=== PATIENT | male | born 1985 | race Caucasian/White ===

== ENCOUNTER 2023-02-23 09:38 | Emergency (ER) | payer SELFPAY ==
--- NOTE | ~2023-02-23 | CT_ITS ---
EXAMINATION: CT ABDOMEN AND PELVIS WITH CONTRAST CLINICAL INFORMATION: Right lower quadrant pain nausea vomiting evaluate for appendicitis renal stone COMPARISON: None available. TECHNIQUE: Multidetector volumetric images were obtained from the superior aspect of the liver through the pubic symphysis following administration 85 mL of Omnipaque 350 intravenous contrast. Sagittal and coronal reformatted images were obtained on the technologist's workstation. Oral contrast: No This CT examination was performed using dose optimization techniques as appropriate, variously including the following: *Automated exposure control *Adjustment of mA and/or kV according to patient size (this includes techniques or standardized protocols for targeted exams where dose is matched to indication/reason for exam; i.e. extremities or head) *Use of iterative reconstruction technique DLP: 792 mGy-cm FINDINGS: LUNG BASES: Bibasilar atelectasis. No pneumothorax. No large pleural effusion. LIVER, GALLBLADDER, AND BILIARY TREE: The liver is normal in size, shape, and attenuation. No focal hepatic lesion or biliary ductal dilatation is present. The gallbladder is unremarkable with no evidence of radiopaque gallstones, gallbladder wall thickening, or obvious pericholecystic inflammatory changes. PANCREAS: Unremarkable. SPLEEN: Unremarkable. ADRENAL GLANDS: Unremarkable. KIDNEYS AND URETERS: Slight limitations for evaluation of nephrolithiasis given intravenous contrast within the collecting system. The kidneys are normal in size, shape, and attenuation. No hydronephrosis, hydroureter, or calculi seen. No perinephric stranding. BLADDER: Unremarkable. GASTROINTESTINAL TRACT: Small hiatal hernia. Colonic diverticulosis without acute diverticulitis. The small and large bowel are unremarkable. The appendix is unremarkable. ABDOMINAL WALL: Small fat filled umbilical hernia. LYMPH NODES: Normal. VASCULAR: Unremarkable. PELVIC VISCERA: Prostate measures 4.1 cm. OSSEOUS STRUCTURES: Unremarkable. CT/CT abdomen pelvis w IV con IMPRESSION: 1. No acute process of the abdomen or pelvis identified. 2. Slight limitations for evaluation of nephrolithiasis given intravenous contrast within the collecting system. No hydronephrosis, hydroureter, or calculi seen. 3. Small hiatal hernia. 4. Colonic diverticulosis without acute diverticulitis.
[2023-02-23 09:50] VITALS: BP 160/98; PULSE 68; O2SAT 99; BMI 33.5
[2023-02-23 09:53] VITALS: BP 158/84; PULSE 62; RESP 16; TEMP 36.5; O2SAT 100
--- NOTE | 2023-02-23 10:02 | ED.ABDPAIN ---
HPI - Abdominal Pain General Chief Complaint: Nausea/Vomiting/Diarrhea Stated Complaint: R FLANK PAIN,VOMITING X1 DAY PER EMS Time Seen by Provider: 02/23/23 09:59 Source: patient, family (), EMS and RN notes reviewed Mode of arrival: EMS Limitations: no limitations History of Present Illness HPI narrative: 37-year-old male with pmhx significant for DVT of left upper extremity presenting to the ED today via EMS with a complaint of excruciating right lower quadrant pain that radiates to his right flank which woke him from his sleep 8 hours ago. Pain has been constant since onset. Radiates to his right flank. Rates pain 10/10. Has had pain like this intermittently over the last month. Associated symptoms include nausea and vomiting. Denies previous abdominal surgeries. Denies ilicit drug use. Denies ETOH consumptions. Not on AC. Last BM yesterday. Denies fever, chills, MELENDREZ, dizziness, neck pain, back pain, chest pain, SOB, diarrhea, constipation, dysuria, hematuria. Related Data Previous Rx's Medication Instructions Recorded morphine 15 mg immediate release 15 mg PO Q8H PRN pain (scale score 02/23/23 tablet 7-10) 3 days #12 tabs omeprazole 20 mg capsule,delayed 20 mg PO DAILY #14 caps 02/23/23 release ondansetron 4 mg disintegrating 4 mg PO DAILY PRN nausea and 02/23/23 tablet vomiting 5 days #10 tabs tamsulosin 0.4 mg capsule 0.4 mg PO DAILY 30 days #30 caps 02/23/23 Allergies Allergy/AdvReac Type Severity Reaction Status Date / Time No Known Allergies Allergy Verified 02/23/23 09:50 Review of Systems Review of Systems Constitutional: No fever, chills, fatigue, night sweats, weight changes ENT/Mouth: No ear pain, hearing loss, nasal congestion, sinus pain, rhinorrhea, sore throat Eyes: No eye pain, swelling, redness, vision changes, discharge Cardio: No chest pain, palpitations, BUCK, orthopnea, peripheral edema Pulm: No SOB, cough, sputum, wheezing, dyspnea, hemoptysis GI: +nausea, +vomiting, No hematemesis, +abdominal pain, No diarrhea, constipation, hematochezia, melena : No irregular bleeding, dysuria, frequency, urgency, hesitancy, hematuria, flank pain, urinary flow changes, urinary incontinence or retention MSK: No back pain, neck pain, joint pain, myalgias Skin: No lesions, rashes Neuro: No weakness, numbness, paresthesias, LOC, dizziness, headache All other systems reviewed and are negative. [facility] Past Medical History Attestation statement: The following information was validated with the patient. Source: old records reviewed and nursing notes reviewed Social History Social History Alcohol intake: never Smoked in Last 30 Days: No Use of substances other than those prescribed or required for medical reasons: No Advance Directives: No Physical Exam ED Vital Signs: Vital Signs - 24 hr 02/23/23 09:53 02/23/23 11:47 02/23/23 14:00 Temperature 97.7 F 98.0 F Pulse Rate 62 77 87 Respiratory Rate 16 18 16 Blood Pressure 158/84 H 164/105 H 130/96 H Pulse Oximetry 100 100 97 Oxygen Delivery Method Room Air Room Air Room Air BMI result Body Mass Index 33.5 Vital signs notable for hypertension Const Other: + Patient writhing in pain on bed guarding his stomach General: alert, awake and ill appearing; No diaphoretic Nutritional Appearance: average body habitus Orientation/consciousness: patient oriented x3 Limitations: no limitations HENMT Head: Yes normal to inspection Ears: hearing grossly normal bilaterally General nose exam: Normal external nose present Eyes General: appearance normal, both eyes and all related structures Conjunctivae: conjunctivae normal Sclerae: sclerae normal Pupils: Equal, round and reactive pupils present Neck Neck: Yes normal visual inspection, Yes no lymphadenopathy and Yes no meningeal signs Resp Effort & Inspection: normal respiratory effort Auscultation: clear to auscultation bilaterally Cardio Rate: regular rate Rhythm: regular rhythm Peripheral pulses: radial pulses present, posterior tibial pulses present and dorsalis pedis present GI Other: + Abdomen soft, non-distended, diffusely tender to palpation, worse to RLQ, guarding, no rebound tenderness. Normoactive BS x4. Inspection: Yes normal to inspection and No abdominal wall ecchymosis General: Yes no CVA tenderness Back/Spine/Pelvis Back: no CVA tenderness Skin General skin exam: no rashes or lesions noted Neuro General: patient oriented x3, gait normal, moves all extremities and no meningeal signs Cranial nerves: Yes CN's II-XII intact bilaterally and Yes Equal, round and reactive pupils present Extrem General: Yes normal to inspection and Yes capillary refill normal Course Course Course Narrative: 1156-- Patient still complaining of excruciating abdominal pain. Another 4 of morphine ordered. I also checked with CT and patient is up next for scan. > On review of labs, CBC is without leukocytosis or anemia. Chemistry is without acute electrolyte abnormality requiring intervention. Normal renal function. Lipase is WNL. Urine is negative for infection. Toxicology is positive for amphetamines, otherwise undetectable. 1307-- Physician observation initiated pending CT read. 1406-- CT unremarkable. There is a small umbilical hernia and hiatal hernia however this does not correlate with patient's presentation and is unlikely to be the cause of his pain. Unable to identify any renal stone d/t contrast. No hydronephrosis. > on re-evaluation patient reports symptom improvement with IV morphine. He is up and talking to me, no longer rolling around on the bed. His is at bedside. Informed patient of his unremarkable lab and CT results. Patient's symptoms are likely consistent with non-obstructing kidney stone/renal colic. Patient tolerating PO in ED. Will send patient home with Zofran, morphine for pain, and Flomax. Patient also reports concern for possible stress ulcer. This is unlikely however will send patient home with trial of omeprazole. Patient expresses understanding of workup and plan. Discussed return precautions. All questions answered at this time. Patient agreeable with disposition and stable for d/c. Medical Decision Making Medical Decision Making [facility] Narrative: 37-year-old male with pmhx significant for DVT of left upper extremity presenting to the ED today via EMS with a complaint of excruciating right lower quadrant pain that radiates to his right flank which woke him from his sleep 8 hours ago. Vital signs notable for hypertension, likely secondary to pain. Patient writhing in pain on bed guarding his stomach. Abdomen soft, non-distended, diffusely tender to palpation, worse to RLQ, guarding, no rebound tenderness. Normoactive BS x4. No CVAT b/l. Clinical concern for renal stone/ renal colic, appendicitis/ perforation, pancreatitis, cholecystitis/lithiasis. Lower suspicion for UTI, pyelonephritis, hydronephrosis. Unlikely SBO, ischemic bowel, hepatitis. Plan at this time is labs, UA, u tox, imaging, pain control. Differential Diagnosis Differential Diagnoses: The differential diagnosis associated with the presentation includes As above. Admission/Observation Not indicated. Lab Data MDM Lab Attestation statement: I reviewed the patient's lab results. As above. 02/23/23 10:46 02/23/23 10:46 Labs: Lab Results 02/23/23 Range/Units 10:46 WBC 10.6 (4.8-10.8) X10*3/uL RBC 5.08 (4.60-5.80) X10*6/uL Hgb 14.6 (14.0-18.0) g/dl Hct 43.2 (42.0-52.0) % MCV 85.0 (80.0-98.0) fL MCH 28.7 (27.0-33.0) pg MCHC 33.8 (31.0-36.0) g/dl RDW 12.4 (11.0-16.0) % Plt Count 324 (160-400) X10*3/uL MPV 11.2 (9.4-12.4) fL Immature Gran % (Auto) 0.4 (0.0-0.4) % Neut % (Auto) 77.4 H (45-73) % Lymph % (Auto) 17.0 L (20-40) % [place] % (Auto) 4.4 (2-11) % Eos % (Auto) 0.3 (0-4) % Baso % (Auto) 0.5 (0-2) % Lymph # (Auto) 1.8 (1.2-4.9) X10*3/uL [place] # (Auto) 0.5 (0.1-1.2) X10*3/uL Eos # (Auto) 0.0 (0.0-0.4) X10*3/uL Baso # (Auto) 0.1 (0.0-0.2) X10*3/uL Abs Immat Gran (auto) 0.04 H (0.00-0.03) X10*3/uL Absolute Neuts (auto) 8.2 (2.0-8.3) x10*3/uL Absolute Nucleated RBC 0.000 (0.0-0.012) X10*3/uL Nucleated RBC % (auto) 0.0 (0.0-0.2) /100WBC ESR 7 (0-15) MM/HR PT 10.9 L (11.1-13.3) SEC INR 0.9 (0.9-1.1) Sodium 140 (135-145) mmol/L Potassium 3.8 (3.3-5.1) mmol/L Chloride 106 (96-108) mmol/L Carbon Dioxide 26 (22-29) mmol/L Anion Gap 12 (12-20) BUN 13 (9-16) mg/dL Creatinine 0.82 (0.5-1.4) mg/dL Estim Creat Clear Calc 148.5 Estimated GFR > 60 Random Glucose 105 (60-115) mg/dL Calcium 10.1 (8.4-10.2) mg/dL Magnesium 2.0 (1.6-2.6) mg/dL Total Bilirubin 0.7 (0.0-1.0) mg/dL AST 25 (5-37) U/L ALT 96 H (0-40) U/L Alkaline Phosphatase 103 (39-117) U/L C-Reactive Protein < 0.10 (< or = 0.50) mg/dL Total Protein 7.7 (6.5-8.0) g/dL Albumin 4.5 (3.5-5.0) g/dL Lipase 31 (8-78) U/L Urine Color Yellow Urine Appearance Clear Urine pH 8.5 (5.0-9.0) Ur Specific [place] 1.020 (1.005-1.025) Urine Protein Negative (Neg-Trace) mg/dL Urine Glucose (UA) Negative (Negative) mg/dL Urine Ketones Negative (Negative) mg/dL Urine Blood Negative (Negative) Urine Nitrite Negative (Negative) Ur Leukocyte Esterase Negative (Negative) Urine Opiates Screen Not Detected (Not Detect) Urine Fentanyl Screen Not Detected (Not Detect) Ur Barbiturates Screen Not Detected (Not Detect) Ur Phencyclidine Scrn Not Detected (Not Detect) Ur Amphetamines Screen POSITIVE H (Not Detect) U Benzodiazepines Scrn Not Detected (Not Detect) Urine Cocaine Screen Not Detected (Not Detect) U Marijuana (THC) Screen Not Detected (Not Detect) Ethyl Alcohol < 10 mg/dL Independent Interpretation I performed an independent interpretation of an: CT Scan Interpretation: CT abd/ pelvis without evidence of appendicitis, agree with radiologist's interpretation Radiology Impression Discussion of test interpretation with radiology: I have reviewed the radiologist's reading. Radiologist Impression: CT abdomen pelvis w IV con IMPRESSION: 1. No acute process of the abdomen or pelvis identified. 2. Slight limitations for evaluation of nephrolithiasis given intravenous contrast within the collecting system. No hydronephrosis, hydroureter, or calculi seen. 3. Small hiatal hernia. 4. Colonic diverticulosis without acute diverticulitis. Independent Historian Clinical information obtained from an independent historian. History obtained from or confirmed by: Spouse and EMS External Record Review External record reviewed: Inpatient record, Office record and Outpatient record Prescription Management I considered prescription management with: Pain Medication Chronic Conditions Patient?s care impacted by: Other (DVT) Medications Administered Discontinued Medications Generic Name Dose Route Start Last Admin Trade Name Freq PRN Reason Stop Dose Admin Sodium Chloride 1,000 mls @ 999 mls/hr 02/23/23 10:30 02/23/23 11:47 Ns IV 02/23/23 11:30 Infused .Q1H1M MICHAEL Infusion Iohexol 85 ml 02/23/23 12:26 02/23/23 12:26 Iohexol 350 Mg/Ml 100 Ml Infus..Btl IV 02/23/23 12:27 85 ml ONCE ONE Administration Morphine Sulfate 4 mg 02/23/23 10:19 02/23/23 10:52 Morphine Sulfate 4 Mg/Ml Cartridge IVPUSH 02/23/23 10:20 4 mg ONCE ONE Administration Protocol Morphine Sulfate 4 mg 02/23/23 11:52 02/23/23 11:57 Morphine Sulfate 4 Mg/Ml Cartridge IVPUSH 02/23/23 11:53 4 mg ONCE ONE Administration Protocol Morphine Sulfate 2 mg 02/23/23 14:04 02/23/23 14:11 Morphine Sulfate 2 Mg/Ml Cartridge IVPUSH 02/23/23 14:05 2 mg ONCE ONE Administration Protocol Critical Care Time Critical Care Time Critical Care Time: Yes Total Critical Care Time: 60 Attestation: Critical care time in the amount of 60 minutes has been provided to the patient in terms of direct patient care, frequent reevaluation on IV morphine, review and interpretation of medical data and results, and management of potentially life-threatening conditions. This is all outside of any medical procedures. Discharge Plan Discharge Clinical Impression: Renal calculi Patient Disposition: Home, Self-Care Instructions: Kidney Stones (ED), Renal Colic (ED) Additional Instructions: Your labs today are reassuring. The CT scan of your abdomen/pelvis did not demonstrate any acute process. It did show a small umbilical hernia which likely is not the cause of your pain. Your symptoms are consistent with renal stones. Flomax has been sent to your pharmacy. Take this as prescribed to help urinate if stones. Zofran has been sent to your pharmacy. This is anti nausea medication. Take this as needed for nausea. Morphine is a pain medication. Take this as needed for pain. You tolerated dose of this in the emergency department today. Omeprazole is a medication that can help with gastric ulcers. Take this as prescribed to help with discomfort. Please follow-up with your primary care physician. If you do not have one, a referral has been provided to you. You may call them to make an appointment. They will not call you. You have also been provided with a referral to a GI specialist for concern of gastric ulcer. If your symptoms persist or worsen, please return to the emergency department. In the case of an emergency call 911. Prescriptions: New tamsulosin 0.4 mg capsule 0.4 mg PO DAILY 30 Days Qty: 30 0RF morphine 15 mg tablet 15 mg PO Q8H PRN (Reason: pain (scale score 7-10)) 3 Days Qty: 12 0RF Rx Instructions: Partial Fill upon patient request. ondansetron 4 mg tablet,disintegrating 4 mg PO DAILY PRN (Reason: nausea and vomiting) 5 Days Qty: 10 0RF omeprazole 20 mg capsule,delayed release(DR/EC) 20 mg PO DAILY Qty: 14 0RF Referrals: [facility] [place] [facility] [Provider Group] - 5 days [facility] [Provider Group] [facility] [place] [facility] [Provider Group] Vladimir Albarran MD [Primary Care Provider] - Stand Alone Forms: Work/School Release Interventions: ED Discharge Assessment Last Done: 02/23/23 14:36 Discharge Date/Time: 02/23/23 14:36
[2023-02-23] MEDS: 0.9 % Sodium Chloride 1,000 ML 999 ML IV (10:46)
[2023-02-23 10:51] LABS: MANUAL DIFF FLAG NO
[2023-02-23 10:52] LABS: Basophils Absolute Auto 0.1 X10*3/uL (0.0-0.2); Basophils Percent Auto 0.5 % (0-2); Eosinophils Percent Auto 0.3 % (0-4); Hematocrit 43.2 % (42.0-52.0); Hemoglobin 14.6 g/dl (14.0-18.0); Imm Gran Abs Auto 0.04 X10*3/uL (0.00-0.03); Imm Gran Pct Auto 0.4 % (0.0-0.4); Lymphocytes Absolute Auto 1.8 X10*3/uL (1.2-4.9); Mean Corpuscular HGB Conc 33.8 g/dl (31.0-36.0); Mean Corpuscular Hemoglobin 28.7 pg (27.0-33.0); Mean Platelet Volume 11.2 fL (9.4-12.4); Monocytes Absolute Auto 0.5 X10*3/uL (0.1-1.2); Monocytes Percent Auto 4.4 % (2-11); Neutrophils Absolute Auto 8.2 x10*3/uL (2.0-8.3); Neutrophils Percent Auto 77.4 % (45-73); Platelet Count 324 X10*3/uL (160-400); Red Blood Count 5.08 X10*6/uL (4.60-5.80); Red Cell Distribution Width 12.4 % (11.0-16.0); White Blood Count 10.6 X10*3/uL (4.8-10.8)
[2023-02-23] MEDS: Morphine Sulfate 4 MG/ML CARTRIDGE IVPUSH ×2 (10:52→11:57)
[2023-02-23 10:53] LABS: Appearance Urine Clear; Color Urine Yellow; Glucose Urine UA Negative (Negative); Leukocyte Esterase Urine Negative (Negative); Nitrite Urine Negative (Negative); PH 8.5 (5.0-9.0); Urine Blood Negative (Negative); Urine Ketones Negative (Negative); Urine Protein Negative (Neg-Trace)
--- NOTE | 2023-02-23 10:53 | PC.NURSE ---
2ogIV placed in left AC w/o complications - labs drawn and sent to lab. medication administered per provider order. pt awaiting CT scan at this time/aware of plan of care. respirations remain even and unlabored. pt tearful/agitated d/t pain. will reassess pain level shortly. family bedside for support. call breaux placed within reach.
[2023-02-23 10:57] LABS: INTERNATIONAL NORM RATIO 0.9 (0.9-1.1); Prothrombin Time 10.9 SEC (11.1-13.3)
[2023-02-23 11:04] LABS: Amphetamine Screen Urine POSITIVE (Not Detect); Barbiturates, Urine Not Detected (Not Detect); Benzodiazepines Screen Urine Not Detected (Not Detect); Cannabinoid Screen Urine Not Detected (Not Detect); Cocaine Screen Urine Not Detected (Not Detect); Fentanyl, urine Not Detected (Not Detect); Opiate Screen Urine Not Detected (Not Detect); Phencyclidine Screen Urine Not Detected (Not Detect)
[2023-02-23 11:13] LABS: Alanine Aminotransferase 96 U/L (0-40); Albumin Level 4.5 g/dL (3.5-5.0); Alkaline Phosphatase 103 U/L (39-117); Anion Gap 12 (12-20); Aspartate Amino Transferase 25 U/L (5-37); Bilirubin Total 0.7 mg/dL (0.0-1.0); Blood Urea Nitrogen 13 mg/dL (9-16); C Reactive Protein < 0.10 mg/dL (< or = 0.50); Calcium 10.1 mg/dL (8.4-10.2); Carbon Dioxide 26 mmol/L (22-29); Chloride 106 mmol/L (96-108); Creatinine Clr Calc Pharmacy 148.5; Estimated Glomerular Filt Rate > 60; Glucose Random 105 mg/dL (60-115); Lipase 31 U/L (8-78); Potassium 3.8 mmol/L (3.3-5.1); Sodium 140 mmol/L (135-145); Total Protein 7.7 g/dL (6.5-8.0)
[2023-02-23 11:21] LABS: Ethanol < 10 mg/dL
[2023-02-23 11:29] LABS: Erythrocyte Sedimentation Rate 7 MM/HR (0-15)
[2023-02-23 11:47] VITALS: BP 164/105; PULSE 77; RESP 18; TEMP 36.7; O2SAT 100
--- NOTE | 2023-02-23 11:48 | PC.NURSE ---
vss aside from being hypertensive at this time. pt c/o 05/04 abd/flank pain despite medication. will notify provider. pt currently remains tearful/agitated d/t pain. family bedside. call breaux within reach.
--- NOTE | 2023-02-23 12:01 | PC.NURSE ---
provider aware of pt's BP and pain level at this time. medication administered per provider order. will reassess pain level shortly. pt still awaiting CT. family bedside. call breaux within reach.
--- NOTE | 2023-02-23 12:04 | PC.NURSE ---
pt currently being transported to CT at this time.
--- NOTE | 2023-02-23 12:14 | PC.NURSE ---
pt back from CT at this time.
[2023-02-23] MEDS: iohexoL 350 MG/ML 100 ML INFUS..BTL 85 ML IV (12:26)
--- NOTE | 2023-02-23 13:58 | PC.NURSE ---
pt speaking w/ provider and pt's about plan of action at this time.
[2023-02-23 14:00] VITALS: BP 130/96; PULSE 87; RESP 16; O2SAT 97
[2023-02-23] MEDS: Morphine Sulfate 2 MG/ML CARTRIDGE IVPUSH (14:11)
--- NOTE | 2023-02-23 14:12 | PC.NURSE ---
medication administered per provider order. will reassess shortly. family bedside. call breaux within reach.
== END 2023-02-23 14:36 | disposition home or self-care (01) ==
PROVIDERS: Physician Assistant Medical; Emergency Provider Emergency Medicine Emergency Medical Services; PCP Internal Medicine
DX: N20.0 Calculus of kidney (principal); R10.31 Right lower quadrant pain; R11.2 Nausea with vomiting, unspecified; K42.9 Umbilical hernia without obstruction or gangrene; K44.9 Diaphragmatic hernia without obstruction or gangrene; K57.30 Diverticulosis of large intestine without perforation or abscess without bleeding; Z86.718 Personal history of other venous thrombosis and embolism
CPT/HCPCS: 36415; 74177; 80053; 80307; 81003; 83690; 83735; 85025; 85610; 85652; 86140; 96361; 96374; 96376; 99284; 99285; J2270; Q9967

== ENCOUNTER 2023-07-23 13:59 | Emergency (ER) | payer MEDICAID, SELFPAY ==
--- NOTE | ~2023-07-23 | CT_ITS ---
EXAMINATION: CT ANGIOGRAM OF THE CHEST WITH AND WITHOUT CONTRAST (CT PULMONARY ANGIOGRAM FOR PE) CLINICAL INFORMATION: Pleuritic chest pain. Rule out pulmonary embolism. COMPARISON: None available. TECHNIQUE: Prior to contrast administration, noncontrast localization images were obtained. Subsequently, multidetector volumetric imaging was performed from the thoracic inlet to below the diaphragms following the administration of 65 mL Omnipaque 350 intravenous contrast. No contrast reaction reported Sagittal, coronal, and MIP oblique sagittal reformatted images were obtained on the CT workstation, uploaded to PACS, and reviewed. This CT examination was performed using dose optimization techniques as appropriate, variously including the following: *Automated exposure control *Adjustment of mA and/or kV according to patient size (this includes techniques or standardized protocols for targeted exams where dose is matched to indication/reason for exam; i.e. extremities or head) *Use of iterative reconstruction technique Total exam dose-length product 401 mGy-cm FINDINGS: QUALITY OF STUDY/CONTRAST BOLUS: Satisfactory. PULMONARY ARTERIES: No pulmonary emboli. THORACIC AORTA: No aneurysm. LUNG: No focal consolidation, significant nodules or masses. A 0.4 cm somewhat plaque-like nodules/thickening is noted along the right major fissure, is nonspecific and likely representing a small fissural lymph node (series 8 image 193). PLEURA: No pleural effusion or pneumothorax. MEDIASTINUM: Normal heart size. No pericardial effusion. No hilar or mediastinal lymphadenopathy. No evidence of septal bowing or right heart strain. A triangular soft tissue is noted in the anterior superior mediastinum, measuring 3.2 cm in transverse dimension, may represent residual thymic tissue versus thymic hyperplasia. Thymic soft tissue lesion would be difficult to exclude entirely. CORONARY ARTERY CALCIFICATION: None visualized on this study. CHEST WALL/AXILLA: No axillary or internal mammary lymphadenopathy. Moderate to extensive bilateral gynecomastia. OSSEOUS STRUCTURES: No acute or suspicious osseous abnormality. Minimal multilevel degenerative changes in the thoracic spine. UPPER ABDOMEN: Unremarkable. Mild reflux of contrast into inferior vena cava is noted which is nonspecific; finding can be seen in the setting of elevated right heart pressures/right heart strain. Recommend clinical correlation. CT/CT angio chest PE protocol IMPRESSION: 1. No evidence of pulmonary embolism. 2. No acute pulmonary process. 3. A 3.2 cm triangular soft tissue in the anterior superior mediastinum may represent residual thymic tissue versus thymic hyperplasia. Thymic soft tissue lesion would be difficult to exclude entirely. As clinically deemed necessary chest MRI (with and without contrast) will be helpful for further evaluation. 4. Moderate to extensive bilateral gynecomastia. VTE: negative.
--- NOTE | ~2023-07-23 | CT_ITS ---
EXAMINATION: CT ABDOMEN AND PELVIS WITHOUT CONTRAST CLINICAL INFORMATION: R flank pain. COMPARISON: 02/23/2023. TECHNIQUE: Multidetector volumetric imaging was performed from the superior aspect of the liver through the pubic symphysis without contrast per renal stone protocol. Sagittal and coronal reformatted images were obtained on the technologist workstation. This CT examination was performed using dose optimization techniques as appropriate, variously including the following: *Automated exposure control *Adjustment of mA and/or kV according to patient size (this includes techniques or standardized protocols for targeted exams where dose is matched to indication/reason for exam; i.e. extremities or head) *Use of iterative reconstruction technique DLP: 904 mGy-cm. FINDINGS: LUNG BASES: The visualized lung bases are unremarkable. LIVER, GALLBLADDER, BILIARY TREE: The non-contrast liver is normal in size, shape, and attenuation. No focal hepatic lesion or biliary ductal dilatation is present. The gallbladder is unremarkable with no evidence of radiopaque gallstones, gallbladder wall thickening, or obvious pericholecystic inflammatory changes. PANCREAS: Unremarkable. SPLEEN: Unremarkable. ADRENAL GLANDS: Unremarkable. KIDNEYS AND URETERS: The kidneys are normal in size, shape, and attenuation. No hydronephrosis, hydroureter, or perinephric stranding. No calculi. BLADDER: Unremarkable. GASTROINTESTINAL TRACT: There is scattered colonic diverticulosis in the sigmoid colon. Colon is otherwise decompressed with no obvious colonic wall thickening or pericolonic inflammatory change appreciated appendix is unremarkable with no periappendiceal inflammatory change. Visualized small bowel unremarkable ABDOMINAL WALL: No significant hernia is appreciated. LYMPHOVASCULAR STRUCTURES: No lymphadenopathy. The aorta is unremarkable.. PELVIC VISCERA: Unremarkable. OSSEUS STRUCTURES: Unremarkable. CT/CT abdomen pelvis wo IV con IMPRESSION: No acute intra-abdominal process seen. No renal or ureteric calculi. No obstructive changes to the kidneys.
[2023-07-23 14:06] VITALS: BP 164/74; BP 189/103; PULSE 72; PULSE 76; RESP 17; TEMP 35.9; O2SAT 100; O2SAT 94; BMI 34.0
--- NOTE | 2023-07-23 14:15 | ED_ITS ---
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 The patient states he woke up with the pain at 06:00 hours. He points to his right upper flank and right anterior and posterior lower chest localize the pain. He describes the pain as a ?pulled muscle pain is if something is hacking him up from the inside ?. States the pain is worse with breathing and with coughing. He states he has had a cough on and off for 6 months pain in the past here in the emergency department on 02/23/2023. Patient's workup was negative at that time and he was diagnosed with renal colic treated with Flomax, morphine, ondansetron omeprazole. Patient states he has had similar pain several times in the past besides the time that he was seen in the emergency department. Patient states that he had the flu 1 week ago. He states that he has had intermittent fever and chills since then. He has had a nonproductive cough intermittently for the last 6 months. Currently complains of shortness of breath and dyspnea on exertion. He had nausea with no vomiting. He denied diarrhea. He states that he has pain when he initially tries to urinate but then the pain is resolved once he urinates. He denied frequency or dysuria. Related Data Previous Rx's Medication Instructions Recorded morphine 15 mg immediate release 15 mg PO Q8H PRN pain (scale score 02/23/23 tablet 7-10) 3 days #12 tabs omeprazole 20 mg capsule,delayed 20 mg PO DAILY #14 caps 02/23/23 release ondansetron 4 mg disintegrating 4 mg PO DAILY PRN nausea and 02/23/23 tablet vomiting 5 days #10 tabs tamsulosin 0.4 mg capsule 0.4 mg PO DAILY 30 days #30 caps 02/23/23 morphine 15 mg immediate release 15 mg PO Q6H PRN pain #10 tabs 07/23/23 tablet tamsulosin 0.4 mg capsule (Flomax) 0.4 mg PO DAILY #30 caps 07/23/23 Allergies Allergy/AdvReac Type Severity Reaction Status Date / Time No Known Allergies Allergy Verified 02/23/23 09:50 Review of Systems 2 Review of Systems: Yes all other systems are reviewed and are negative [facility] Past Medical History [facility] Narrative: Past medical history: Left upper extremity DVT, hypertension not treated with medications. Social history: He denies tobacco, alcohol and drug use. Social History Social History Alcohol intake: never Smoked in Last 30 Days: No Use of substances other than those prescribed or required for medical reasons: No Advance Directives: No Advance Directives Information Provided: No Physical Exam ED Vital Signs: Vital Signs - 24 hr 07/23/23 14:06 07/23/23 15:45 07/23/23 18:26 Temperature 96.7 F L Pulse Rate 76 63 79 Respiratory Rate 17 16 20 Blood Pressure 189/103 H 149/97 H 147/103 H Pulse Oximetry 100 100 99 Oxygen Delivery Method Room Air Room Air Room Air BMI result Body Mass Index 34.0 Vital signs revealed an elevated blood pressure of 189/103. Exam: General: Awake, alert , patient appears to be in distress secondary to his pain Head: Normocephalic, atraumatic EENT: PERRL, Lids normal, sclera normal, conjunctiva normal, nose normal , ears normal, throat without erythema or exudates Neck: Supple, no adenopathy Lung: breath sounds symmetric, no wheezing, rales or rhonchi Chest: symmetric movement, nontender Heart: regular rate and rhythm, normal S1, S2 no murmurs or rubs Abdomen: soft, non-tender, nondistended, normal bowel sounds Back: no vertebral tenderness, no CVAT Extremities: no deformities, moves all extremities symmetrically the Skin: No rashes or lesions seen in the area where he is complaining of pain Neuro: Awake, alert, oriented, normal speech, cranial nerves intact, moves all extremities symmetrically Psych: Pleasant, cooperative Course Course Course Narrative: This is an RME: Additional HPI, ROS, PE not included below will be deferred to primary provider. 38 year old male hx significant for DVT of left upper extremity not on thinners, htn presenting to the ED w/ severe RLQ pain w/ radiation to R flank and a/c nausea. Thinks he had a kidney stone before but unclear. Pain > 10/10 per patient. No fevers or chills, cp, sob, diarrhea, sick contacts. Isnt followed by pcp regularly PE looks uncomfortable Plan- labs, ua, ct scan Medications Administered Discontinued Medications Generic Name Dose Route Start Last Admin Trade Name Alda PRN Reason Stop Dose Admin Sodium Chloride 1,000 mls @ 999 mls/hr 07/23/23 16:02 07/23/23 17:45 Ns IV 07/23/23 17:02 Infused .Q1H1M STA Infusion Iohexol 100 ml 07/23/23 16:29 07/23/23 16:30 Iohexol 350 Mg/Ml 100 Ml Infus..Btl IV 07/23/23 16:30 65 ml ONCE ONE Administration Ketorolac Tromethamine 15 mg 07/23/23 16:02 07/23/23 16:14 Ketorolac Tromethamine 15 Mg/Ml Vial IVPUSH 07/23/23 16:03 15 mg ONCE STA Administration Morphine Sulfate 4 mg 07/23/23 17:08 07/23/23 17:19 Morphine Sulfate 4 Mg/Ml Cartridge IVPUSH 07/23/23 17:09 4 mg ONCE STA Administration Protocol Ondansetron HCl 4 mg 07/23/23 16:02 07/23/23 16:14 Ondansetron Hcl 4 Mg/2 Ml Vial IVPUSH 07/23/23 16:03 4 mg ONCE ONE Administration Medical Decision Making Medical Decision Making [facility] Narrative: 38-year-old male with history of left arm DVT secondary to anabolic steroid use who presents emergency department for evaluation constant, severe right-sided pleuritic chest pain/flank pain. Pain is worse with coughing and with breathing, he has had similar pain in the past and had a negative workup here in the emergency department 02/23/2023 and was diagnosed with renal colic. Patient has had a intermittent cough on and on for 6 months, he had flu-like illness 1 week prior. Vital signs did reveal an elevated blood pressure-she does have hypertension but is not taking medications. Physical examination revealed no with palpation of his chest wall, back muscles or abdominal area. There were no skin lesions to suggest herpes zoster at this time. Differential diagnosis: ?Includes but is not limited to biliary colic, renal colic, ureteral stone, pneumonia, pulmonary embolism, appendicitis, pancreatitis, cardiac ischemia, myocardial infarction, herpes zoster Following evaluation was ordered: CBC, CMP, lipase, magnesium, troponin, CT scan of the abdomen pelvis with IV contrast, CT angiogram chest PE protocol, EKG Patient was initially treated with the following: Toradol 15 mg IV, Zofran 4 mg IV, normal saline x1 L, insert, cardiac monitoring, O2 saturation monitoring Course: 16:15 My independent interpretation patient's laboratory evaluation as follows: CBC was normal. Elevated ALT of 47. Urinalysis negative. Lipase pending. PT/INR, PTT, D-dimer pending CT scan of the abdomen pelvis with IV contrast did not reveal a clear etiology for his abdominal/chest pain. 18:54 CT pulmonary angiogram PE protocol did not reveal any significant finding to explain the patient's pleuritic pain however the patient does have an incidental finding, 3.2 cm triangle soft tissue mass in the anterior superior mediastinum which may be residual thymic tissue verses thymic hyperplasia. I did discuss this finding with the patient the patient's . 12 EKG was unremarkable Patient only got minimal improvement with IV Toradol and required a dose of morphine 4 mg IV with reduction of his pain to 4/10 Patient will be discharged with prescription for Flomax this may have helped him last time as well as a prescription for morphine He was given printed and verbal instructions and discharged home Admission/Observation Consideration of admission/observation: Escalation of care including admission/observation considered Lab Data MDM Lab Attestation statement: I reviewed the patient's lab results. 07/23/23 14:36 07/23/23 14:36 Labs: Lab Results 07/23/23 07/23/23 Range/Units 14:36 16:34 WBC 9.9 (4.8-10.8) X10*3/uL RBC 5.34 (4.60-5.80) X10*6/uL Hgb 15.5 (14.0-18.0) g/dl Hct 45.1 (42.0-52.0) % MCV 84.5 (80.0-98.0) fL MCH 29.0 (27.0-33.0) pg MCHC 34.4 (31.0-36.0) g/dl RDW 12.7 (11.0-16.0) % Plt Count 300 (160-400) X10*3/uL MPV 11.0 (9.4-12.4) fL Immature Gran % (Auto) 0.3 (0.0-0.4) % Neut % (Auto) 76.3 H (45-73) % Lymph % (Auto) 16.5 L (20-40) % [place] % (Auto) 5.7 (2-11) % Eos % (Auto) 0.6 (0-4) % Baso % (Auto) 0.6 (0-2) % Lymph # (Auto) 1.6 (1.2-4.9) X10*3/uL [place] # (Auto) 0.6 (0.1-1.2) X10*3/uL Eos # (Auto) 0.1 (0.0-0.4) X10*3/uL Baso # (Auto) 0.1 (0.0-0.2) X10*3/uL Abs Immat Gran (auto) 0.03 (0.00-0.03) X10*3/uL Absolute Neuts (auto) 7.5 (2.0-8.3) x10*3/uL Absolute Nucleated RBC 0.000 (0.0-0.012) X10*3/uL Nucleated RBC % (auto) 0.0 (0.0-0.2) /100WBC PT 11.0 L (11.1-13.3) SEC INR 0.9 (0.9-1.1) D-Dimer High Sensitivty 190 NG/ML Sodium 140 (135-145) mmol/L Potassium 3.7 (3.3-5.1) mmol/L Chloride 104 (96-108) mmol/L Carbon Dioxide 25 (22-29) mmol/L Anion Gap 15 (12-20) BUN 13 (9-16) mg/dL Creatinine 0.95 (0.5-1.4) mg/dL Estim Creat Clear Calc 127.9 Estimated GFR > 60 Random Glucose 98 (60-115) mg/dL Calcium 10.1 (8.4-10.2) mg/dL Magnesium 2.1 (1.6-2.6) mg/dL Total Bilirubin 0.7 (0.0-1.0) mg/dL AST 22 (5-37) U/L ALT 47 H (0-40) U/L Alkaline Phosphatase 110 (39-117) U/L Total Protein 8.0 (6.5-8.0) g/dL Albumin 4.7 (3.5-5.0) g/dL Lipase 106 H (8-78) U/L Urine Color Yellow Urine Appearance Cloudy Urine pH >= 9.0 (5.0-9.0) Ur Specific [place] 1.015 (1.005-1.025) Urine Protein Negative (Neg-Trace) mg/dL Urine Glucose (UA) Negative (Negative) mg/dL Urine Ketones Negative (Negative) mg/dL Urine Blood Negative (Negative) Urine Nitrite Negative (Negative) Ur Leukocyte Esterase Negative (Negative) Independent Interpretation I performed an independent interpretation of an: EKG Interpretation: My independent interpretation patient's 12 EKG done at 16:53 hours is as follows: QRS of 104 milliseconds, depression, no PACs, no PVCs, no significant Radiology Impression Discussion of test interpretation with radiology: I have reviewed the radiologist's reading. Radiologist Impression: CT abdomen pelvis wo IV con IMPRESSION: No acute intra-abdominal process seen. No renal or ureteric calculi. No obstructive changes to the kidneys. Dictated By: Cornell Michaels MD CT angio chest PE protocol IMPRESSION: 1. No evidence of pulmonary embolism. 2. No acute pulmonary process. 3. A 3.2 cm triangular soft tissue in the anterior superior mediastinum may represent residual thymic tissue versus thymic hyperplasia. Thymic soft tissue lesion would be difficult to exclude entirely. As clinically deemed necessary chest MRI (with and without contrast) will be helpful for further evaluation. 4. Moderate to extensive bilateral gynecomastia. VTE: negative. Dictated By: Julio Cesar Mendiola MD Independent Historian Clinical information obtained from an independent historian. History obtained from or confirmed by: Spouse Prescription Management I considered prescription management with: Pain Medication Discharge Plan Discharge Clinical Impression: Chest pain, pleuritic, Right flank pain Patient Disposition: Home, Self-Care Additional Instructions: Your blood work was unremarkable Urinalysis was also normal The CT scan of your abdomen pelvis without contrast did not reveal a clear cause for your abdominal pain The CT pulmonary angiogram pulmonary embolism protocol did not reveal any blood clots in your lungs or any other abnormality to explain your pain. At this time I do not have a cl2 pills every 6 hours as needed for pain. Take Tylenol (acetaminophen) 2 pills every 6 hours as needed for pain. For pain not relieved by ibuprofen or Tylenol take morphine 15 mg pills, 1 pill every 4 hours as needed for pain. This medication will make you sleepy, do not drive or work while taking this medication. Morphine is a narcotic medication and can be addicting. If you are concerned about addiction you can ask the pharmacist for less pills or do not get this prescription filled. Follow-up with your doctor in 2 days. Please return to the emergency department if your symptoms get worse or if you develop any symptoms that are concerning to you. There was an incidental finding on your CT scan of your chest, please see the reading below. The radiologist did note a 3.2 cm soft tissue mass in the mediastinum which may be residual thymic gland or hyperplastic thymic gland. The radiologist recommendation that you get an MRI with and without contrast as an outpatient. It is important that you get this test ordered by your outpatient physician to further evaluate this finding. CT angio chest PE protocol IMPRESSION: 1. No evidence of pulmonary embolism. 2. No acute pulmonary process. 3. A 3.2 cm triangular soft tissue in the anterior superior mediastinum may represent residual thymic tissue versus thymic hyperplasia. Thymic soft tissue lesion would be difficult to exclude entirely. As clinically deemed necessary chest MRI (with and without contrast) will be helpful for further evaluation. 4. Moderate to extensive bilateral gynecomastia. VTE: negative. Dictated By: Julio Cesar Mendiola MD Prescriptions: New tamsulosin [Flomax] 0.4 mg capsule 0.4 mg PO DAILY Qty: 30 0RF morphine 15 mg tablet 15 mg PO Q6H PRN (Reason: pain) Qty: 10 0RF Rx Instructions: The patient may ask for partial fill; Partial Fill upon patient request. No Action tamsulosin 0.4 mg capsule 0.4 mg PO DAILY 30 Days Qty: 30 0RF morphine 15 mg tablet 15 mg PO Q8H PRN (Reason: pain (scale score 7-10)) 3 Days Qty: 12 0RF Rx Instructions: Partial Fill upon patient request. ondansetron 4 mg tablet,disintegrating 4 mg PO DAILY PRN (Reason: nausea and vomiting) 5 Days Qty: 10 0RF omeprazole 20 mg capsule,delayed release(DR/EC) 20 mg PO DAILY Qty: 14 0RF
[2023-07-23 14:40] LABS: MANUAL DIFF FLAG NO
[2023-07-23 14:44] LABS: Appearance Urine Cloudy; Color Urine Yellow; Glucose Urine UA Negative (Negative); Leukocyte Esterase Urine Negative (Negative); Nitrite Urine Negative (Negative); PH >= 9.0 (5.0-9.0); Specific Gravity - Urine 1.015 (1.005-1.025); Urine Blood Negative (Negative); Urine Ketones Negative (Negative); Urine Protein Negative (Neg-Trace)
[2023-07-23 14:47] LABS: Basophils Absolute Auto 0.1 X10*3/uL (0.0-0.2); Basophils Percent Auto 0.6 % (0-2); Eosinophils Absolute Auto 0.1 X10*3/uL (0.0-0.4); Eosinophils Percent Auto 0.6 % (0-4); Hematocrit 45.1 % (42.0-52.0); Hemoglobin 15.5 g/dl (14.0-18.0); Imm Gran Abs Auto 0.03 X10*3/uL (0.00-0.03); Imm Gran Pct Auto 0.3 % (0.0-0.4); Lymphocytes Absolute Auto 1.6 X10*3/uL (1.2-4.9); Lymphocytes Percent Auto 16.5 % (20-40); Mean Corpuscular HGB Conc 34.4 g/dl (31.0-36.0); Mean Corpuscular Volume 84.5 fL (80.0-98.0); Monocytes Absolute Auto 0.6 X10*3/uL (0.1-1.2); Monocytes Percent Auto 5.7 % (2-11); Neutrophils Absolute Auto 7.5 x10*3/uL (2.0-8.3); Neutrophils Percent Auto 76.3 % (45-73); Platelet Count 300 X10*3/uL (160-400); Red Blood Count 5.34 X10*6/uL (4.60-5.80); Red Cell Distribution Width 12.7 % (11.0-16.0); White Blood Count 9.9 X10*3/uL (4.8-10.8)
[2023-07-23 14:58] LABS: Alanine Aminotransferase 47 U/L (0-40); Albumin Level 4.7 g/dL (3.5-5.0); Alkaline Phosphatase 110 U/L (39-117); Anion Gap 15 (12-20); Aspartate Amino Transferase 22 U/L (5-37); Bilirubin Total 0.7 mg/dL (0.0-1.0); Blood Urea Nitrogen 13 mg/dL (9-16); Calcium 10.1 mg/dL (8.4-10.2); Carbon Dioxide 25 mmol/L (22-29); Chloride 104 mmol/L (96-108); Creatinine Clr Calc Pharmacy 127.9; Estimated Glomerular Filt Rate > 60; Glucose Random 98 mg/dL (60-115); Magnesium 2.1 mg/dL (1.6-2.6); Potassium 3.7 mmol/L (3.3-5.1); Sodium 140 mmol/L (135-145)
[2023-07-23 15:45] VITALS: BP 149/97; PULSE 63; RESP 16; O2SAT 100
--- NOTE | 2023-07-23 16:02 | ECG_ITS ---
Test Reason : CHEST PAIN Blood Pressure : / mmHG Vent. Rate : 066 BPM Atrial Rate : 066 BPM P-R Int : 160 ms QRS Dur : 104 ms QT Int : 434 ms P-R-T Axes : 000 157 190 degrees QTc Int : 454 ms Limb leads reversal Normal sinus rhythm Left posterior fascicular block Nonspecific T wave abnormality Abnormal ECG No previous ECGs available Referred By: Damon Edward Electronically Signed By:Krunal Honeycutt
[2023-07-23] MEDS: 0.9 % Sodium Chloride 1,000 ML 999 ML IV (16:14)
[2023-07-23] MEDS: Ketorolac Tromethamine 15 MG/ML VIAL IVPUSH (16:14)
[2023-07-23] MEDS: ondansetron HCL 4 MG/2 ML VIAL IVPUSH (16:14)
[2023-07-23] MEDS: iohexoL 350 MG/ML 100 ML INFUS..BTL IV (16:30)
[2023-07-23] MEDS: Morphine Sulfate 4 MG/ML CARTRIDGE IVPUSH (17:19)
[2023-07-23 17:26] LABS: INTERNATIONAL NORM RATIO 0.9 (0.9-1.1)
[2023-07-23 17:28] LABS: D Dimer High Sensitivity 190 NG/ML
[2023-07-23 18:26] VITALS: BP 147/103; PULSE 79; RESP 20; O2SAT 99
[2023-07-23 18:52] LABS: Lipase 106 U/L (8-78)
[2023-07-23 19:33] VITALS: BP 151/93; PULSE 76; RESP 14; TEMP 36.7; O2SAT 98
== END 2023-07-23 19:34 | disposition home or self-care (01) ==
PROVIDERS: Physician Assistant; Emergency Provider Emergency Medicine Emergency Medical Services
DX: R10.9 Unspecified abdominal pain (principal); R07.1 Chest pain on breathing; I10 Essential (primary) hypertension; Z86.718 Personal history of other venous thrombosis and embolism
CPT/HCPCS: 36415; 71275; 74176; 80053; 81003; 83690; 83735; 85025; 85379; 85610; 93005; 96361; 96374; 96375; 99284; 99285; J1885; J2270; J2405; Q9967

== ENCOUNTER → 2023-07-23 16:02 | Outpatient (BNV) | payer MEDICAID, SELFPAY | PROVIDERS: Emergency Provider Emergency Medicine Emergency Medical Services; Visit Provider Internal Medicine Cardiovascular Disease | DX: R94.31 Abnormal electrocardiogram [ECG] [EKG] (principal) | CPT/HCPCS: 93010 ==

== ENCOUNTER 2023-07-29 14:01 | Outpatient (REF) | payer MEDICAID, SELFPAY ==
[2023-07-29 17:35] LABS: MANUAL DIFF FLAG NO
[2023-07-29 17:41] LABS: Basophils Absolute Auto 0.1 X10*3/uL (0.0-0.2); Basophils Percent Auto 0.9 % (0-2); Eosinophils Absolute Auto 0.1 X10*3/uL (0.0-0.4); Hematocrit 47.4 % (42.0-52.0); Hemoglobin 15.7 g/dl (14.0-18.0); Imm Gran Abs Auto 0.01 X10*3/uL (0.00-0.03); Imm Gran Pct Auto 0.2 % (0.0-0.4); Lymphocytes Absolute Auto 1.5 X10*3/uL (1.2-4.9); Lymphocytes Percent Auto 27.1 % (20-40); Mean Corpuscular HGB Conc 33.1 g/dl (31.0-36.0); Mean Corpuscular Hemoglobin 28.9 pg (27.0-33.0); Mean Corpuscular Volume 87.3 fL (80.0-98.0); Mean Platelet Volume 11.5 fL (9.4-12.4); Monocytes Absolute Auto 0.5 X10*3/uL (0.1-1.2); Monocytes Percent Auto 9.4 % (2-11); Neutrophils Absolute Auto 3.3 x10*3/uL (2.0-8.3); Neutrophils Percent Auto 60.4 % (45-73); Platelet Count 306 X10*3/uL (160-400); Red Blood Count 5.43 X10*6/uL (4.60-5.80); Red Cell Distribution Width 13.5 % (11.0-16.0); White Blood Count 5.5 X10*3/uL (4.8-10.8)
[2023-07-29 17:53] LABS: Alanine Aminotransferase 108 U/L (0-40); Albumin Level 4.5 g/dL (3.5-5.0); Alkaline Phosphatase 123 U/L (39-117); Aspartate Amino Transferase 21 U/L (5-37); Bilirubin Total 0.6 mg/dL (0.0-1.0); Blood Urea Nitrogen 16 mg/dL (9-16); C Reactive Protein 0.12 mg/dL (< or = 0.50); Calcium 10.4 mg/dL (8.4-10.2); Carbon Dioxide 30 mmol/L (22-29); Chloride 105 mmol/L (96-108); Estimated Glomerular Filt Rate > 60; Gamma Glutamyl Transpeptidase 160 U/L (11-51); Glucose Random 78 mg/dL (60-115); Iron 75 mcg/dL (45-160); Lipase 18 U/L (8-78); Percent Iron Saturation 25 % (15-50); Potassium 4.4 mmol/L (3.3-5.1); Sodium 141 mmol/L (135-145); Total Iron Binding Capacity 305 mcg/dL (228-428); Total Protein 8.2 g/dL (6.5-8.0); Unsaturated Iron Binding 230 ug/dL
[2023-07-29 18:02] LABS: Amylase 54 U/L (28-100)
[2023-07-29 18:12] LABS: Appearance Urine Clear; Color Urine Dark Yellow; Glucose Urine UA Negative (Negative); Leukocyte Esterase Urine Trace (Negative); Nitrite Urine Negative (Negative); Specific Gravity - Urine 1.025 (1.005-1.025); UMIC TRIGGER UA YES; Urine Blood Negative (Negative); Urine Ketones Trace mg/dL (Negative); Urine Protein Negative (Neg-Trace)
[2023-07-29 18:18] LABS: Ferritin 347 ng/mL (20-250); Free T4 (Free Thyroxine) 0.95 ng/dL (0.71-1.85); Thyroid Stimulating Hormone 1.09 uIU/mL (0.32-4.0)
[2023-07-29 18:36] LABS: Erythrocyte Sedimentation Rate 16 MM/HR (0-15)
[2023-07-29 18:48] LABS: Bacteria Urine None Seen (None Seen); RBC Urine 0-2 /HPF (0-2); Squamous Epithelial Cell Urine 0-2 /HPF (0-2)
[2023-07-29 19:49] LABS: Anion Gap 10 (12-20)
[2023-07-30 07:25] LABS: Estimated Average Glucose 105 mg/dL; Hemoglobin A1c % 5.3 % (<6.0)
[2023-08-02 03:03] LABS: DHEA Sulfate 137 mcg/dL (93-415)
[2023-08-06 23:09] LABS: Estradiol Free 0.41 pg/mL; Estradiol, Ultrasensitive 21 pg/mL (< OR = 29)
[2023-08-07 14:19] LABS: Testosterone, Free 60.2 pg/mL (35.0-155.0); Testosterone, Total 427 ng/dL (250-1100)
[2023-08-13 22:49] LABS: Estrone <20 pg/mL (< OR = 68)
== END 2023-07-29 14:02 | disposition home or self-care (01) ==
LOC: HO.MANLDS 14:01
PROVIDERS: Visit Provider Physician Assistant
DX: R10.0 Acute abdomen (principal); R89.1 Abnormal level of hormones in specimens from other organs, systems and tissues
CPT/HCPCS: 36415; 80053; 81001; 82150; 82627; 82670; 82679; 82681; 82728; 82977; 83036; 83540; 83690; 84402; 84403; 84439; 84443; 85025; 85652; 86140

== ENCOUNTER 2023-08-16 11:59 | Outpatient (REF) | payer MEDICAID, SELFPAY ==
[2023-08-16 17:49] LABS: Calcium 10.2 mg/dL (8.4-10.2)
[2023-08-16 18:16] LABS: Parathyroid Hormone Intact 40.7 pg/mL (8.7-77.1)
== END 2023-08-16 12:00 | disposition home or self-care (01) ==
LOC: HO.MANLDS 11:59
PROVIDERS: Visit Provider Physician Assistant
DX: E21.3 Hyperparathyroidism, unspecified (principal)
CPT/HCPCS: 36415; 82310; 83970

== ENCOUNTER 2023-08-19 15:21 | Outpatient (REF) | payer MEDICAID, SELFPAY ==
--- NOTE | ~2023-08-19 | MR_ITS ---
EXAMINATION: MR CHEST WITHOUT AND WITH CONTRAST CLINICAL INFORMATION: History of chest pain. Possible residual thymic tissue or thymic hyperplasia on chest CT exam. COMPARISON: CT angiography chest from 07/23/2023. TECHNIQUE: MR imaging of the chest is performed using standard sequences on a high-field magnet without and with intravenous administration of 10 mL Gadavist. FINDINGS: LUNGS AND PLEURA: Lungs are well expanded. No pulmonary mass, consolidation or pleural effusion. CARDIOVASCULAR: Cardiac chambers are normal in size. Thoracic aorta is normal in caliber. Pulmonary arteries are unremarkable. MEDIASTINUM/LOWER NECK: The esophagus is normal. Thyroid gland is normal. Again noted is some soft tissue within the anterosuperior mediastinum. This tissue has somewhat triangular shape within the prevascular space anterior to the aortic arch. It demonstrates a chemical shift ratio of 0.61. A ratio of 0.7 or less is indicative of a normal thymus or thymic hyperplasia. There is no evidence of a mediastinal tumor. LYMPHATICS: No pathologic sized lymph nodes. UPPER ABDOMEN: Cholelithiasis without evidence of gallbladder wall thickening or pericholecystic fluid. No dilated bile ducts. MUSCULOSKELETAL: No suspicious osseous lesions. No chest wall mass. There is symmetric appearance of gynecomastia. MR/MR chest wo/w con IMPRESSION: * There is some residual thymic tissue or thymic hyperplasia in the anterosuperior mediastinum. * No mediastinal mass. * Cholelithiasis. * Gynecomastia.
[2023-08-19] MEDS: gadobutroL 10 ML VIAL IVPUSH (16:20)
== END 2023-08-19 15:22 | disposition home or self-care (01) ==
LOC: HO.MRI 15:21
PROVIDERS: PCP Internal Medicine; Visit Provider Physician Assistant
DX: E32.0 Persistent hyperplasia of thymus (principal)
CPT/HCPCS: 71552; A9585

== ENCOUNTER 2023-10-06 15:42 | Emergency (ER) | payer MEDICAID, SELFPAY ==
[2023-10-06 15:58] VITALS: BP 160/100; PULSE 88; O2SAT 99
[2023-10-06 16:01] VITALS: BP 134/83; PULSE 94; RESP 18; TEMP 36.9; O2SAT 97; BMI 33.2
--- NOTE | 2023-10-06 16:23 | ED.ABDPAIN ---
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 complaining of pain in the left upper abdomen for last 3 days with nausea vomited 1 time denies significant use of cannabis does have history of anxiety and migraine no diarrhea had normal bowel movements Related Data Previous Rx's ?Medication ?Instructions ?Recorded morphine 15 mg immediate release 15 mg PO Q8H PRN pain (scale score 02/23/23 tablet 7-10) 3 days #12 tabs omeprazole 20 mg capsule,delayed 20 mg PO DAILY #14 caps 02/23/23 release ondansetron 4 mg disintegrating 4 mg PO DAILY PRN nausea and 02/23/23 tablet vomiting 5 days #10 tabs tamsulosin 0.4 mg capsule 0.4 mg PO DAILY 30 days #30 caps 02/23/23 morphine 15 mg immediate release 15 mg PO Q6H PRN pain #10 tabs 07/23/23 tablet tamsulosin 0.4 mg capsule (Flomax) 0.4 mg PO DAILY #30 caps 07/23/23 dicyclomine 20 mg tablet 20 mg PO QID PRN abdominal pain 10/06/23 #20 tabs sumatriptan succinate 50 mg tablet 50 mg PO Q2H PRN migraine headache 10/06/23 (Imitrex) #10 tabs Allergies Allergy/AdvReac Type Severity Reaction Status Date / Time No Known Allergies Allergy Verified 10/06/23 16:04 Review of Systems Review of Systems Yes all other systems are reviewed and are negative [facility] Social History Social History Alcohol intake: never Smoked in Last 30 Days: No Use of substances other than those prescribed or required for medical reasons: No Advance Directives: No Advance Directives Information Provided: No Do you have a plan to hurt others: No Plan Physical Exam ED Vital Signs: Vital Signs - 24 hr 10/06/23 16:01 10/06/23 17:49 10/06/23 19:11 Temperature 98.4 F 98.5 F 0 F L Pulse Rate 94 66 0 L Respiratory Rate 18 16 0 L Blood Pressure 134/83 176/104 H 0/0 L Pulse Oximetry 97 97 Oxygen Delivery Method Room Air Room Air BMI result Body Mass Index 33.2 Appearance: Alert. Oriented X3. No acute distress. Eyes: PERRLA, No Nystagmus ENT: Pharynx normal. Oral Mucosa moist Neck: Normal inspection. Neck supple. CVS: Normal heart rate and rhythm. Pulses normal. Respiratory: No respiratory distress. Equal air entry bilateral, no wheezing/rales/rhonchi Abdomen: Soft diffuse pper abdominal tenderness no rebound tenderness or guarding Bowel sounds are present, no mass palpable, no CVA tenderness Skin: Skin warm and dry. Normal skin color. Normal skin turgor. Extremities: No lower extremity edema. No calf tenderness Neuro: Oriented X 3. No motor deficit. No sensory deficit.No cerebellar signs , cranial nerves II-XII intact Medical Decision Making Medical Decision Making [facility] Narrative: Patient has chronic abdominal pain with history of migraine improved after Imitrex likely abdominal migraine as the cause at previous detailed workup done which was negative here also labs are stable will discharge patient home on Fioricet and Imitrex Lab Data [facility] Lab Attestation statement: I reviewed the patient's lab results. 10/06/23 17:35 10/06/23 17:35 Labs: Lab Results 10/06/23 Range/Units 17:35 WBC 9.6 (4.8-10.8) X10*3/uL RBC 5.13 (4.60-5.80) X10*6/uL Hgb 15.1 (14.0-18.0) g/dl Hct 44.6 (42.0-52.0) % MCV 86.9 (80.0-98.0) fL MCH 29.4 (27.0-33.0) pg MCHC 33.9 (31.0-36.0) g/dl RDW 13.1 (11.0-16.0) % Plt Count 268 (160-400) X10*3/uL MPV 11.1 (9.4-12.4) fL Immature Gran % (Auto) 0.3 (0.0-0.4) % Neut % (Auto) 71.8 (45-73) % Lymph % (Auto) 16.0 L (20-40) % [place] % (Auto) 10.2 (2-11) % Eos % (Auto) 1.0 (0-4) % Baso % (Auto) 0.7 (0-2) % Lymph # (Auto) 1.5 (1.2-4.9) X10*3/uL [place] # (Auto) 1.0 (0.1-1.2) X10*3/uL Eos # (Auto) 0.1 (0.0-0.4) X10*3/uL Baso # (Auto) 0.1 (0.0-0.2) X10*3/uL Abs Immat Gran (auto) 0.03 (0.00-0.03) X10*3/uL Absolute Neuts (auto) 6.9 (2.0-8.3) x10*3/uL Absolute Nucleated RBC 0.000 (0.0-0.012) X10*3/uL Nucleated RBC % (auto) 0.0 (0.0-0.2) /100WBC Sodium 141 (135-145) mmol/L Potassium 4.2 (3.3-5.1) mmol/L Chloride 107 (96-108) mmol/L Carbon Dioxide 29 (22-29) mmol/L Anion Gap 9 L (12-20) BUN 6 L (9-16) mg/dL Creatinine 0.86 (0.5-1.4) mg/dL Estim Creat Clear Calc 139.8 Estimated GFR > 60 Random Glucose 88 (60-115) mg/dL Calcium 9.4 D (8.4-10.2) mg/dL Magnesium 1.9 (1.6-2.6) mg/dL Total Bilirubin 0.3 (0.0-1.0) mg/dL AST 20 (5-37) U/L ALT 45 H (0-40) U/L Alkaline Phosphatase 109 (39-117) U/L Total Protein 7.0 (6.5-8.0) g/dL Albumin 4.0 (3.5-5.0) g/dL Lipase 13 (8-78) U/L Medications Administered Discontinued Medications Generic Name Dose Route Start Last Admin Trade Name Freq PRN Reason Stop Dose Admin Sodium Chloride 1,000 mls @ 999 mls/hr 06/13/24 16:46 10/06/23 17:03 Ns IV 10/06/23 17:46 999 mls/hr .Q1H1M ONE Administration Ketorolac Tromethamine 30 mg 10/06/23 17:36 10/06/23 17:44 Ketorolac Tromethamine 30 Mg/Ml Vial IVPUSH 10/06/23 17:37 30 mg ONCE ONE Administration Ondansetron HCl 4 mg 10/06/23 16:51 10/06/23 17:08 Ondansetron Hcl 4 Mg/2 Ml Vial IVPUSH 10/06/23 16:52 4 mg ONCE ONE Administration Sumatriptan Succinate 6 mg 10/06/23 16:51 10/06/23 17:07 Sumatriptan Succinate 6 Mg/0.5 Ml Vial SUBCUT 10/06/23 16:52 6 mg ONCE ONE Administration Discharge Plan Discharge Clinical Impression: Chronic abdominal pain Patient Disposition: Home, Self-Care Instructions: Chronic Abdominal Pain (ED) Additional Instructions: Possible that you might have abdominal migraine Try Imitrex 1 tablet at onset of headache/abdominal pain may repeat in 2 hours if pain continues Nausea medication as prescribed Dicyclomine for frequent pain Follow with PCP/drilling and production superintendent for further evaluation Prescriptions: New sumatriptan succinate [Imitrex] 50 mg tablet 50 mg PO Q2H PRN (Reason: migraine headache) Qty: 10 0RF Rx Instructions: do not exceed 2 doses per 24 hrs dicyclomine 20 mg tablet 20 mg PO QID PRN (Reason: abdominal pain) Qty: 20 0RF No Action tamsulosin 0.4 mg capsule 0.4 mg PO DAILY 30 Days Qty: 30 0RF morphine 15 mg tablet 15 mg PO Q8H PRN (Reason: pain (scale score 7-10)) 3 Days Qty: 12 0RF Rx Instructions: Partial Fill upon patient request. ondansetron 4 mg tablet,disintegrating 4 mg PO DAILY PRN (Reason: nausea and vomiting) 5 Days Qty: 10 0RF omeprazole 20 mg capsule,delayed release(DR/EC) 20 mg PO DAILY Qty: 14 0RF tamsulosin [Flomax] 0.4 mg capsule 0.4 mg PO DAILY Qty: 30 0RF morphine 15 mg tablet 15 mg PO Q6H PRN (Reason: pain) Qty: 10 0RF Rx Instructions: The patient may ask for partial fill; Partial Fill upon patient request. Interventions: ED Discharge Assessment Last Done: 10/06/23 19:11 Discharge Date/Time: 10/06/23 19:13 Print Language: [place] Korean
[2023-10-06] MEDS: 0.9 % Sodium Chloride 1,000 ML 999 ML IV (17:03)
[2023-10-06] MEDS: SUMAtriptan succinate 6 MG/0.5 ML VIAL SUBCUT (17:07)
[2023-10-06] MEDS: ondansetron HCL 4 MG/2 ML VIAL IVPUSH (17:08)
[2023-10-06 17:41] LABS: MANUAL DIFF FLAG NO
[2023-10-06 17:43] LABS: Basophils Absolute Auto 0.1 X10*3/uL (0.0-0.2); Basophils Percent Auto 0.7 % (0-2); Eosinophils Absolute Auto 0.1 X10*3/uL (0.0-0.4); Hematocrit 44.6 % (42.0-52.0); Hemoglobin 15.1 g/dl (14.0-18.0); Imm Gran Abs Auto 0.03 X10*3/uL (0.00-0.03); Imm Gran Pct Auto 0.3 % (0.0-0.4); Lymphocytes Absolute Auto 1.5 X10*3/uL (1.2-4.9); Mean Corpuscular HGB Conc 33.9 g/dl (31.0-36.0); Mean Corpuscular Hemoglobin 29.4 pg (27.0-33.0); Mean Corpuscular Volume 86.9 fL (80.0-98.0); Mean Platelet Volume 11.1 fL (9.4-12.4); Monocytes Percent Auto 10.2 % (2-11); Neutrophils Absolute Auto 6.9 x10*3/uL (2.0-8.3); Neutrophils Percent Auto 71.8 % (45-73); Platelet Count 268 X10*3/uL (160-400); Red Blood Count 5.13 X10*6/uL (4.60-5.80); Red Cell Distribution Width 13.1 % (11.0-16.0); White Blood Count 9.6 X10*3/uL (4.8-10.8)
[2023-10-06] MEDS: Ketorolac Tromethamine 30 MG/ML VIAL IVPUSH (17:44)
[2023-10-06 17:49] VITALS: BP 176/104; PULSE 66; RESP 16; TEMP 36.9; O2SAT 97
[2023-10-06 17:59] LABS: Alanine Aminotransferase 45 U/L (0-40); Alkaline Phosphatase 109 U/L (39-117); Anion Gap 9 (12-20); Aspartate Amino Transferase 20 U/L (5-37); Bilirubin Total 0.3 mg/dL (0.0-1.0); Blood Urea Nitrogen 6 mg/dL (9-16); Calcium 9.4 mg/dL (8.4-10.2); Carbon Dioxide 29 mmol/L (22-29); Chloride 107 mmol/L (96-108); Creatinine Clr Calc Pharmacy 139.8; Estimated Glomerular Filt Rate > 60; Glucose Random 88 mg/dL (60-115); Lipase 13 U/L (8-78); Magnesium 1.9 mg/dL (1.6-2.6); Potassium 4.2 mmol/L (3.3-5.1); Sodium 141 mmol/L (135-145)
[2023-10-06 19:11] VITALS: BP 0/0; PULSE 0; RESP 0; TEMP -17.7; TEMP 0
== END 2023-10-06 19:13 | disposition home or self-care (01) ==
PROVIDERS: Emergency Provider Internal Medicine; PCP Internal Medicine
DX: G89.29 Other chronic pain (principal); R10.12 Left upper quadrant pain
CPT/HCPCS: 36415; 80053; 83690; 83735; 85025; 96372; 96374; 96375; 99284; 99285; J1885; J2405; J3030

== ENCOUNTER 2023-10-07 05:17 | Emergency (ER) | payer MEDICAID, SELFPAY ==
--- NOTE | 2023-10-07 | ECG_ITS ---
Test Reason : ABDOMINAL PAIN Blood Pressure : / mmHG Vent. Rate : 074 BPM Atrial Rate : 074 BPM P-R Int : 160 ms QRS Dur : 100 ms QT Int : 402 ms P-R-T Axes : 038 038 051 degrees QTc Int : 446 ms Normal sinus rhythm Minimal voltage criteria for LVH, may be normal variant ( Sokolow-Oates ) Borderline ECG When compared with ECG of 23-JUL-2023 16:53, Left posterior fascicular block is no longer Present Nonspecific T wave abnormality, improved in Lateral leads Referred By: Generic ED Physician Electronically Signed By:GUNNAR COTTRELL
--- NOTE | ~2023-10-07 | CT_ITS ---
EXAMINATION: CT ABDOMEN AND PELVIS WITH CONTRAST CLINICAL INFORMATION: Pain COMPARISON: 07/23/2023 TECHNIQUE: Multidetector volumetric images were obtained from the superior aspect of the liver through the pubic symphysis following administration 85 mL of Omnipaque 350 intravenous contrast. Sagittal and coronal reformatted images were obtained on the technologist's workstation. Oral contrast: No This CT examination was performed using dose optimization techniques as appropriate, variously including the following: *Automated exposure control *Adjustment of mA and/or kV according to patient size (this includes techniques or standardized protocols for targeted exams where dose is matched to indication/reason for exam; i.e. extremities or head) *Use of iterative reconstruction technique DLP: 783 mGy-cm FINDINGS: LUNG BASES: The visualized lung bases are unremarkable. LIVER, GALLBLADDER, AND BILIARY TREE: The liver is normal in size, shape, and attenuation. No focal hepatic lesion or biliary ductal dilatation is present. The gallbladder is unremarkable with no evidence of radiopaque gallstones, gallbladder wall thickening, or obvious pericholecystic inflammatory changes. PANCREAS: Unremarkable. SPLEEN: Unremarkable. ADRENAL GLANDS: Unremarkable. KIDNEYS AND URETERS: The kidneys are normal in size, shape, and attenuation. No hydronephrosis, hydroureter, or calculi seen. No perinephric stranding. BLADDER: Unremarkable. GASTROINTESTINAL TRACT: The small and large bowel are unremarkable. The appendix is unremarkable. ABDOMINAL WALL: Scattered diverticula throughout the colon. Normal appendix. No evidence for obstruction. Moderate stool particularly within the right colon. No evidence for any hernia grossly. Borderline prominent small bowel loops right abdomen. There is some fecal administration within the small bowel suggesting disordered motility. LYMPH NODES: Normal. VASCULAR: Unremarkable. PELVIC VISCERA: Unremarkable. OSSEOUS STRUCTURES: Unremarkable. CT/CT abdomen pelvis w IV con IMPRESSION: No evidence for any hernia grossly. No obstruction. Moderate stool burden particularly within the right colon. There is some fecal administration within the small bowel suggesting disordered motility. Fleischner guidelines were followed.
[2023-10-07 05:22] VITALS: BP 168/96; PULSE 84; O2SAT 98; BMI 35.5
[2023-10-07 05:27] VITALS: BP 147/92; PULSE 78; RESP 19; TEMP 36.6; O2SAT 97
[2023-10-07 05:55] LABS: MANUAL DIFF FLAG NO
[2023-10-07 05:57] LABS: Basophils Absolute Auto 0.1 X10*3/uL (0.0-0.2); Eosinophils Absolute Auto 0.1 X10*3/uL (0.0-0.4); Eosinophils Percent Auto 1.6 % (0-4); Hematocrit 41.4 % (42.0-52.0); Hemoglobin 14.2 g/dl (14.0-18.0); Imm Gran Abs Auto 0.02 X10*3/uL (0.00-0.03); Imm Gran Pct Auto 0.3 % (0.0-0.4); Lymphocytes Absolute Auto 2.1 X10*3/uL (1.2-4.9); Lymphocytes Percent Auto 26.3 % (20-40); Mean Corpuscular HGB Conc 34.3 g/dl (31.0-36.0); Mean Corpuscular Hemoglobin 29.5 pg (27.0-33.0); Mean Corpuscular Volume 85.9 fL (80.0-98.0); Mean Platelet Volume 10.6 fL (9.4-12.4); Monocytes Absolute Auto 0.9 X10*3/uL (0.1-1.2); Monocytes Percent Auto 11.4 % (2-11); Neutrophils Absolute Auto 4.7 x10*3/uL (2.0-8.3); Neutrophils Percent Auto 59.4 % (45-73); Platelet Count 248 X10*3/uL (160-400); Red Blood Count 4.82 X10*6/uL (4.60-5.80); Red Cell Distribution Width 13.2 % (11.0-16.0); White Blood Count 7.9 X10*3/uL (4.8-10.8)
[2023-10-07 06:12] LABS: Alanine Aminotransferase 64 U/L (0-40); Albumin Level 3.7 g/dL (3.5-5.0); Alkaline Phosphatase 98 U/L (39-117); Anion Gap 11 (12-20); Aspartate Amino Transferase 38 U/L (5-37); Bilirubin Total 0.3 mg/dL (0.0-1.0); Blood Urea Nitrogen 9 mg/dL (9-16); Calcium 9.3 mg/dL (8.4-10.2); Carbon Dioxide 27 mmol/L (22-29); Chloride 106 mmol/L (96-108); Creatinine Clr Calc Pharmacy 135.1; Estimated Glomerular Filt Rate > 60; Glucose Random 108 mg/dL (60-115); Lipase 37 U/L (8-78); Potassium 4.2 mmol/L (3.3-5.1); Sodium 140 mmol/L (135-145); Total Protein 6.7 g/dL (6.5-8.0)
--- NOTE | 2023-10-07 06:38 | ED_ITS ---
HPI - General Adult General Chief complaint: Abdominal Pain Stated complaint: ABD PAIN RADIATING TO BACK Time Seen by Provider: 10/07/23 06:35 Source: patient and EMS Mode of arrival: EMS Limitations: no limitations History of Present Illness ED Provider: Janell Coughlin PA-C HPI narrative: Patient is a 38 year old assigned male at with no reported medical history presenting to the emergency department today with diffuse abdominal pain. Patient states that he has had this patient on and off for the last 6 months. Patient states that it sometimes stabs and sometimes is dull and radiates to his right flank. Patient states that the pain is worse with eating. Patient denies any dizziness, lightheadedness, nausea, vomiting, fever, chills, blurry vision, double vision, loss of vision, chest pain, difficulty breathing, shortness of breath, back pain, night sweats, pain with urination, increased urinary frequency, increased urinary urgency, blood in his urine or stool, syncope or a near syncopal episode, recent trauma or falls, bowel incontinence, bladder incontinence, or any other complaints at this time. Onset (ago): month(s) (6) Location: abdomen Radiation: flank (right) Severity: mild Severity scale (1-10): 3 Pain Consistency: constant Relieving factors: none Exacerbating factors: eating Associated symptoms: denies other symptoms Treatments prior to arrival: none Related Data Previous Rx's ?Medication ?Instructions ?Recorded morphine 15 mg immediate release 15 mg PO Q8H PRN pain (scale score 02/23/23 tablet 7-10) 3 days #12 tabs omeprazole 20 mg capsule,delayed 20 mg PO DAILY #14 caps 02/23/23 release ondansetron 4 mg disintegrating 4 mg PO DAILY PRN nausea and 02/23/23 tablet vomiting 5 days #10 tabs tamsulosin 0.4 mg capsule 0.4 mg PO DAILY 30 days #30 caps 02/23/23 morphine 15 mg immediate release 15 mg PO Q6H PRN pain #10 tabs 07/23/23 tablet tamsulosin 0.4 mg capsule (Flomax) 0.4 mg PO DAILY #30 caps 07/23/23 dicyclomine 20 mg tablet 20 mg PO QID PRN abdominal pain 10/06/23 #20 tabs sumatriptan succinate 50 mg tablet 50 mg PO Q2H PRN migraine headache 10/06/23 (Imitrex) #10 tabs sennosides 8.6 mg capsule (senna) 8.6 mg PO BEDTIME constipation #14 10/07/23 caps Allergies Allergy/AdvReac Type Severity Reaction Status Date / Time No Known Allergies Allergy Verified 10/07/23 05:24 Review of Systems 2 Constitutional: Constitutional: Reports no additional constitutional complaints, Denies chills, Denies fever(s) and Denies night sweats Eyes: Eyes: Reports no additional eye complaints, Denies blurry vision, Denies change in vision, Denies diplopia, Denies eye discharge, Denies loss of vision and Denies eye pain ENT: Denies dizziness Cardiovascular: Cardiovascular: Reports no additional cardiovascular complaints, Denies chest pain, Denies lightheadedness, Denies Loss of Consciousness and Denies dyspnea Respiratory: Respiratory: Reports no additional respiratory complaints and Denies dyspnea Gastrointestinal: Gastrointestinal: Reports no additional gastrointestinal complaints, Reports abdominal pain, Denies melena, Denies hematochezia, Denies change in bowel habits and Denies change in stool character Genitourinary: Genitourinary: Reports no additional male genitourinary complaints, Denies hematuria, Denies oliguria, Denies difficulty urinating, Denies dysuria, Denies urinary frequency, Denies urinary hesitancy, Denies urinary incontinence and Denies urinary urgency Musculoskeletal: Musculoskeletal: Reports no additional musculoskeletal complaints, Denies numbness and Denies tingling Neurologic: Denies dizziness, Denies loss of vision, Denies numbness and Denies tingling Psychiatric: Psychiatric: Reports no additional psychiatric complaints Endocrine: Endocrine: Reports no additional endocrine complaints Hematologic/Lymphatic: Hematologic/Lymphatic: Reports no additional hematologic/lymphatic complaints Allergic/Immunologic: Allergic/Immunologic: Reports no additional allergic/immunologic complaints PMFSH Past Medical History Attestation statement: The following information was validated with the patient. Source: old records reviewed and nursing notes reviewed Social History Social History Alcohol intake: never Physical Exam ED Vital Signs: Vital Signs - 24 hr 10/07/23 05:27 10/07/23 08:18 10/07/23 08:47 Temperature 97.8 F 98.5 F 98 F Pulse Rate 78 63 83 Respiratory Rate 19 14 16 Blood Pressure 147/92 H 160/97 H 155/101 H Pulse Oximetry 97 96 95 Oxygen Delivery Method Room Air Room Air Room Air BMI result Body Mass Index 35.5 Const General: cooperative, no acute distress, alert and awake Nutritional Appearance: well nourished Orientation/consciousness: patient oriented x3 Limitations: no limitations HENMT Head: Yes normal to inspection and Yes atraumatic Ears: hearing grossly normal bilaterally and external ears normal General nose exam: Normal external nose present, no nasal discharge noted and no epistaxis Face and sinus: Yes normal facial exam, No abrasion and No laceration Mouth: Normal oral and palatal mucosa present, no drooling and no muffled voice Eyes General: appearance normal, both eyes and all related structures Periorbital: periorbital findings normal Eyelids: Yes eyelids normal Conjunctivae: conjunctivae normal Pupils: Equal, round and reactive pupils present EOM: EOMs intact bilaterally Neck Neck: Yes normal visual inspection, Yes full ROM and Yes no lymphadenopathy Chest Chest palpation & inspection: normal inspection of the chest Resp Effort & Inspection: normal respiratory effort and able to speak in complete sentences GI Inspection: Yes normal to inspection Palpation (GI): Soft to palpation, not firm, Tenderness to palpation present (GI) (diffuse), no guarding and not rigid Neuro General: patient oriented x3 and moves all extremities Cranial nerves: Yes Equal, round and reactive pupils present Cognition (Neuro): normal cognition Motor exam (neuro): 5/5 motor strength present throughout Sensory Exam: Normal double simultaneous stimulation for sensation Coordination: [id number] test normal Extrem General: Yes normal to inspection, Yes full ROM and Yes capillary refill normal Psych Appearance: grossly normal Mental Status: mental status grossly normal Affect: normal affect Attitude: cooperative Thought process: Normal thought process present Thought content: Normal thought content present Insight: Good insight present (Psych) Medications Administered Discontinued Medications Generic Name Dose Route Start Last Admin Trade Name Freq PRN Reason Stop Dose Admin Iohexol 85 ml 10/07/23 06:58 10/07/23 06:59 Iohexol 350 Mg/Ml 100 Ml Infus..Btl IV 10/07/23 06:59 85 ml ONCE ONE Administration Morphine Sulfate 4 mg 10/07/23 06:46 10/07/23 07:10 Morphine Sulfate 4 Mg/Ml Cartridge IVPUSH 10/07/23 06:47 4 mg ONCE ONE Administration Protocol Ondansetron HCl 4 mg 10/07/23 06:46 10/07/23 07:10 Ondansetron Hcl 4 Mg/2 Ml Vial IVPUSH 10/07/23 06:47 4 mg ONCE ONE Administration Medical Decision Making Medical Decision Making [facility] Narrative: Patient is a 38 year old assigned male at with no reported medical history presenting to the emergency department today with abdominal pain. Patient's physical exam was as noted in the physical exam portion of this note. Patient's blood work was unremarkable. Patient's urine showed no acute process. Patient's abdomen/pelvis CT showed constipation with which the radiologist speculated a motility issue. I spoke to Dr. Danielson, the GI specialist ruby on rails software developer, who recommended daily senna capsules at night or 2 tabs of senna per day and following up outpatient. I explained my physical exam findings as well as all test results to the patient. I answered all questions asked by the patient. Patient received IV morphine which upon re-evaluation he stated helped his symptoms significantly. I stressed the importance of the patient taking his medication as prescribed. I stressed the importance of the patient following up with his primary care provider and a GI specialist. I stressed the importance of the patient returning to the emergency department immediately if his symptoms were to worsen or if he were to develop any dizziness, shortness of breath, difficulty breathing, chest pain, blurry vision, loss of vision, nausea, vomiting, abdominal pain, fever, chills, back pain, or any other complaints. Patient verbalized agreement and understanding with this treatment plan and discharge. Differential Diagnosis Differential Diagnoses: The differential diagnosis associated with the presentation includes Abdominal pain Diverticulitis Appendicitis Constipation Viral illness Gastroenteritis IBS Admission/Observation Consideration of admission/observation: Escalation of care including admission/observation considered Patient would have been admitted to the hospital had his work up had any findings where hospital admission was appropriate and his clinical presentation warranted hospital admission. Consult Healthcare Provider Management of the patient was discussed with: Physician Office Clin Asst (spoke with Dr. Danielson, from GI, as noted in the MDM Rationale portion of this note.) Lab Data [facility] Lab Attestation statement: I reviewed the patient's lab results. My interpretation of these results are in the MDM Rationale portion of this note. 10/07/23 05:52 10/07/23 05:52 Labs: Lab Results 10/07/23 10/07/23 Range/Units 05:52 07:33 WBC 7.9 (4.8-10.8) X10*3/uL RBC 4.82 (4.60-5.80) X10*6/uL Hgb 14.2 (14.0-18.0) g/dl Hct 41.4 L (42.0-52.0) % MCV 85.9 (80.0-98.0) fL MCH 29.5 (27.0-33.0) pg MCHC 34.3 (31.0-36.0) g/dl RDW 13.2 (11.0-16.0) % Plt Count 248 (160-400) X10*3/uL MPV 10.6 (9.4-12.4) fL Immature Gran % (Auto) 0.3 (0.0-0.4) % Neut % (Auto) 59.4 (45-73) % Lymph % (Auto) 26.3 (20-40) % [place] % (Auto) 11.4 H (2-11) % Eos % (Auto) 1.6 (0-4) % Baso % (Auto) 1.0 (0-2) % Lymph # (Auto) 2.1 (1.2-4.9) X10*3/uL [place] # (Auto) 0.9 (0.1-1.2) X10*3/uL Eos # (Auto) 0.1 (0.0-0.4) X10*3/uL Baso # (Auto) 0.1 (0.0-0.2) X10*3/uL Abs Immat Gran (auto) 0.02 (0.00-0.03) X10*3/uL Absolute Neuts (auto) 4.7 (2.0-8.3) x10*3/uL Absolute Nucleated RBC 0.000 (0.0-0.012) X10*3/uL Nucleated RBC % (auto) 0.0 (0.0-0.2) /100WBC Sodium 140 (135-145) mmol/L Potassium 4.2 (3.3-5.1) mmol/L Chloride 106 (96-108) mmol/L Carbon Dioxide 27 (22-29) mmol/L Anion Gap 11 L (12-20) BUN 9 (9-16) mg/dL Creatinine 0.92 (0.5-1.4) mg/dL Estim Creat Clear Calc 135.1 Estimated GFR > 60 Random Glucose 108 (60-115) mg/dL Calcium 9.3 (8.4-10.2) mg/dL Total Bilirubin 0.3 (0.0-1.0) mg/dL AST 38 H (5-37) U/L ALT 64 H (0-40) U/L Alkaline Phosphatase 98 (39-117) U/L Total Protein 6.7 (6.5-8.0) g/dL Albumin 3.7 (3.5-5.0) g/dL Lipase 37 (8-78) U/L Urine Color Yellow Urine Appearance Clear Urine pH 6.0 (5.0-9.0) Ur Specific [place] 1.010 (1.005-1.025) Urine Protein Negative (Neg-Trace) mg/dL Urine Glucose (UA) Negative (Negative) mg/dL Urine Ketones Negative (Negative) mg/dL Urine Blood Negative (Negative) Urine Nitrite Negative (Negative) Ur Leukocyte Esterase Negative (Negative) Urine RBC 0-2 (0-2) /HPF Urine WBC 0-5 (0-5) /HPF Ur Squamous Epith Cells 0-2 (0-2) /HPF Urine Bacteria None Seen (None Seen) Hyaline Casts 0-2 (0-2) /LPF Independent Interpretation I performed an independent interpretation of an: CT Scan Interpretation: My interpretation is in agreement with the radiologist's impression of this imaging study. - EXAMINATION: CT ABDOMEN AND PELVIS WITH CONTRAST CLINICAL INFORMATION: Pain COMPARISON: 07/23/2023 TECHNIQUE: Multidetector volumetric images were obtained from the superior aspect of the liver through the pubic symphysis following administration 85 mL of Omnipaque 350 intravenous contrast. Sagittal and coronal reformatted images were obtained on the technologist's workstation. Oral contrast: No This CT examination was performed using dose optimization techniques as appropriate, variously including the following: *Automated exposure control *Adjustment of mA and/or kV according to patient size (this includes techniques or standardized protocols for targeted exams where dose is matched to indication/reason for exam; i.e. extremities or head) *Use of iterative reconstruction technique DLP: 783 mGy-cm FINDINGS: LUNG BASES: The visualized lung bases are unremarkable. LIVER, GALLBLADDER, AND BILIARY TREE: The liver is normal in size, shape, and attenuation. No focal hepatic lesion or biliary ductal dilatation is present. The gallbladder is unremarkable with no evidence of radiopaque gallstones, gallbladder wall thickening, or obvious pericholecystic inflammatory changes. PANCREAS: Unremarkable. SPLEEN: Unremarkable. ADRENAL GLANDS: Unremarkable. KIDNEYS AND URETERS: The kidneys are normal in size, shape, and attenuation. No hydronephrosis, hydroureter, or calculi seen. No perinephric stranding. BLADDER: Unremarkable. GASTROINTESTINAL TRACT: The small and large bowel are unremarkable. The appendix is unremarkable. ABDOMINAL WALL: Scattered diverticula throughout the colon. Normal appendix. No evidence for obstruction. Moderate stool particularly within the right colon. No evidence for any hernia grossly. Borderline prominent small bowel loops right abdomen. There is some fecal administration within the small bowel suggesting disordered motility. LYMPH NODES: Normal. VASCULAR: Unremarkable. PELVIC VISCERA: Unremarkable. OSSEOUS STRUCTURES: Unremarkable. CT/CT abdomen pelvis w IV con IMPRESSION: No evidence for any hernia grossly. No obstruction. Moderate stool burden particularly within the right colon. There is some fecal administration within the small bowel suggesting disordered motility. Fleischner guidelines were followed. Dictated By: Luis Kapoor MD Signed By: Electronically signed by Luis Kapoor MD 10/07/23 8749 Radiology Impression Discussion of test interpretation with radiology: I have reviewed the radiologist's reading. Independent Historian Clinical information obtained from an independent historian. History obtained from or confirmed by: EMS (EMS provided additional history and confirmed the history provided by the patient.) Critical Care Time Critical Care Time Critical Care Time: Yes Total Critical Care Time: 37 Attestation: I spent 37 minutes of Critical Care Time with this patient. This does not include time spent on separately reported billable procedures. Discharge Plan Discharge Clinical Impression: Abdominal pain, Constipation Patient Disposition: Home, Self-Care Instructions: Constipation (DC), Abdominal Pain (ED) Additional Instructions: Follow up with your primary care provider and a GI specialist. Return to the emergency department immediately if your symptoms worsen or if you develop any dizziness, shortness of breath, difficulty breathing, chest pain, blurry vision, loss of vision, nausea, vomiting, abdominal pain, fever, chills, back pain, or any other complaints. Prescriptions: New senna 8.6 mg capsule 8.6 mg PO BEDTIME Qty: 14 0RF No Action tamsulosin 0.4 mg capsule 0.4 mg PO DAILY 30 Days Qty: 30 0RF morphine 15 mg tablet 15 mg PO Q8H PRN (Reason: pain (scale score 7-10)) 3 Days Qty: 12 0RF Rx Instructions: Partial Fill upon patient request. ondansetron 4 mg tablet,disintegrating 4 mg PO DAILY PRN (Reason: nausea and vomiting) 5 Days Qty: 10 0RF omeprazole 20 mg capsule,delayed release(DR/EC) 20 mg PO DAILY Qty: 14 0RF tamsulosin [Flomax] 0.4 mg capsule 0.4 mg PO DAILY Qty: 30 0RF morphine 15 mg tablet 15 mg PO Q6H PRN (Reason: pain) Qty: 10 0RF Rx Instructions: The patient may ask for partial fill; Partial Fill upon patient request. sumatriptan succinate [Imitrex] 50 mg tablet 50 mg PO Q2H PRN (Reason: migraine headache) Qty: 10 0RF Rx Instructions: do not exceed 2 doses per 24 hrs dicyclomine 20 mg tablet 20 mg PO QID PRN (Reason: abdominal pain) Qty: 20 0RF [place] [facility] [place] [facility] [place]Provider Group] (Call to establish and follow up with a GI specialist.) [facility] [Provider Group] (Call to establish and follow up with a primary care provider. If you already have a primary care provider, please follow up with them.) [facility] [Provider Group] [facility] [Provider Group] Stand Alone Forms: Work/School Release Discharge Date/Time: 10/07/23 08:48 Print Language: Japanese
[2023-10-07] MEDS: iohexoL 350 MG/ML 100 ML INFUS..BTL 85 ML IV (06:59)
[2023-10-07] MEDS: ondansetron HCL 4 MG/2 ML VIAL IVPUSH (07:10)
[2023-10-07] MEDS: Morphine Sulfate 4 MG/ML CARTRIDGE IVPUSH (07:10)
[2023-10-07 07:40] LABS: Appearance Urine Clear; Color Urine Yellow; Glucose Urine UA Negative (Negative); Leukocyte Esterase Urine Negative (Negative); Nitrite Urine Negative (Negative); Urine Blood Negative (Negative); Urine Ketones Negative (Negative); Urine Protein Negative (Neg-Trace)
[2023-10-07 07:45] LABS: Bacteria Urine None Seen (None Seen); Hyaline Casts Urine 0-2 /LPF (0-2); RBC Urine 0-2 /HPF (0-2); Squamous Epithelial Cell Urine 0-2 /HPF (0-2); WBC Urine 0-5 /HPF (0-5)
[2023-10-07 08:18] VITALS: BP 160/97; PULSE 63; RESP 14; TEMP 36.9; O2SAT 96
[2023-10-07 08:47] VITALS: BP 155/101; PULSE 83; RESP 16; TEMP 36.6; O2SAT 95
== END 2023-10-07 08:48 | disposition home or self-care (01) ==
PROVIDERS: Emergency Provider Emergency Medicine
DX: R10.9 Unspecified abdominal pain (principal); R10.2 Pelvic and perineal pain; R94.31 Abnormal electrocardiogram [ECG] [EKG]; Z79.899 Other long term (current) drug therapy
CPT/HCPCS: 36415; 74177; 80053; 81001; 83690; 85025; 93005; 96374; 96375; 99284; J2270; J2405; Q9967

== ENCOUNTER → 2023-10-07 05:49 | Outpatient (BNV) | payer MEDICAID, SELFPAY | PROVIDERS: Emergency Provider Emergency Medicine; Visit Provider Internal Medicine | DX: R94.31 Abnormal electrocardiogram [ECG] [EKG] (principal) | CPT/HCPCS: 93010 ==